=== PATIENT | female | born 1990 ===

== ENCOUNTER 2021-10-07 17:51 | Observation (INO) ==
[2021-10-07 19:54] LABS: Eosinophils % 0.6 %
[2021-10-07 19:56] LABS: Basophils # 0.1 K/mcL (0.0-0.2); Basophils % 0.5 %; Eosinophils # 0.1 K/mcL (0.0-0.6); Hematocrit 42.6 % (35.3-44.9); Hemoglobin 14.1 g/dL (11.5-15.4); Immature Granulocytes % 0.5 % (0-4); Immature Platelets 7.1 % (1.1-6.1); Lymphocytes # 1.5 K/mcL (0.6-4.6); Lymphocytes % 14.6 %; Mean Corpuscular HGB Conc 33.1 g/dL (31.6-35.5); Mean Corpuscular Hemoglobin 27.2 pg (28.0-33.3); Mean Corpuscular Volume 82.2 fL (83.0-100.0); Mean Platelet Volume 10.4 fL (9.4-12.4); Monocytes # 0.7 K/mcL (0.0-1.3); Monocytes % 6.2 %; Platelet Count 240 K/mcL (140-400); Red Blood Count 5.18 M/mcL (3.82-4.97); Red Cell Distribution Width 13.3 % (11.5-14.5); Segmented Neutrophils % 77.6 %; White Blood Count 10.5 K/mcL (4.3-11.1)
[2021-10-07 20:12] LABS: BUN/Creatinine Ratio 15 (6-26); Blood Urea Nitrogen 10 mg/dL (6-20); Calcium 9.2 mg/dL (8.6-10.3); Carbon Dioxide 24 mEq/L (23-29); Chloride 101 mEq/L (98-107); Glucose 144 mg/dL (70-105); Osmolality,Calculated 280 (280-300); Potassium 3.8 mEq/L (3.5-5.1); Sodium 134 mEq/L (136-145); Troponin I < 0.03 ng/mL (< 0.04); eGFR For African Americans > 60 (> 60); eGFR For Non-African Americans > 60 (> 60)
[2021-10-07] MEDS ORDERED: 0.9 % Sodium Chloride 1,000 ML IVC ONE (20:38)
[2021-10-07 20:51] LABS: Neutrophils # 8.2 K/mcL (1.6-8.9)
[2021-10-07 21:31] LABS: INR 1.1; Prothrombin Time 11.8 Seconds (9.4-12.1)
[2021-10-07 21:33] LABS: Activated Partial Thrombo Time 23.1 Seconds (26.0-36.0)
[2021-10-07] MEDS ORDERED: Isovue-370 500 ML BOTTLE IVP ONE (21:39)
[2021-10-08] MEDS ORDERED: Perflutren Lipid Microsphere 1.3 ML in 0.9 % Sodium Chloride 8.7 ML IVP PRN ×2 (02:13→10:41)
[2021-10-08] MEDS ORDERED: Naloxone 0.4 MG/ML INJ IVP PRN (02:18)
[2021-10-08] MEDS ORDERED: Ondansetron 4 MG/2 ML VIAL IVP PRN (02:18)
[2021-10-08] MEDS ORDERED: Nitroglycerin 0.4 MG TAB.SUBL SL PRN (03:24)
[2021-10-08] MEDS ORDERED: Morphine Sulfate 2 MG/ML SYRINGE IVP PRN (04:00)
[2021-10-08 05:34] LABS: Bilirubin,Urine Negative (Negative); Blood,Urine Trace (Negative); Clarity,Urine Clear (Clear); Color,Urine Light-Yellow (Yellow); Glucose,Urine (UA) Normal (Normal); Ketones,Urine Negative (Negative); Leukocyte Esterase,Urine Negative (Negative); Nitrite,Urine Negative (Negative); Protein,Urine Trace mg/dL (Neg-Trace); RBC,Urine 0-3 per hpf (0-3); Specific Gravity,Urine > 1.030 (1.010-1.025); Squamous Epithelial Cell,Urine Moderate per hpf (None-Few); Urobilinogen,Urine Normal (Normal); WBC,Urine 15-30 per hpf (0-3)
[2021-10-08 07:37] LABS: BUN/Creatinine Ratio 28 (6-26); Blood Urea Nitrogen 11 mg/dL (6-20); Calcium 8.7 mg/dL (8.6-10.3); Carbon Dioxide 23 mEq/L (23-29); Chloride 105 mEq/L (98-107); Chol/HDL Ratio 2.7 (0-4.9); Cholesterol 176 mg/dL (< 200); Glucose 79 mg/dL (70-105); HDL Cholesterol 65 mg/dL (40-59); LDL Cholesterol,Calculated 98 mg/dL (< 100); Magnesium 1.8 mg/dL (1.6-2.6); Osmolality,Calculated 280 (280-300); Potassium 3.7 mEq/L (3.5-5.1); Sodium 136 mEq/L (136-145); Triglycerides 64 mg/dL (< 150); eGFR For African Americans > 60 (> 60); eGFR For Non-African Americans > 60 (> 60)
[2021-10-08 07:47] LABS: Troponin I < 0.03 ng/mL (< 0.04)
[2021-10-08 07:49] LABS: Thyroid Stimulating Hormone 1.445 mcIU/mL (0.340-5.600)
[2021-10-08] MEDS: lisinopriL 20 MG TABLET PO SCH (08:23)
[2021-10-08] MEDS: Aspirin Enteric Coated 81 MG Tablet PO SCH (08:24)
[2021-10-08 14:24] LABS: Hematocrit 37.7 % (35.3-44.9); Hemoglobin 12.8 g/dL (11.5-15.4); Mean Corpuscular Hemoglobin 27.7 pg (28.0-33.3); Mean Corpuscular Volume 81.6 fL (83.0-100.0); Mean Platelet Volume 10.5 fL (9.4-12.4); Platelet Count 229 K/mcL (140-400); Red Blood Count 4.62 M/mcL (3.82-4.97); Red Cell Distribution Width 13.5 % (11.5-14.5); White Blood Count 9.1 K/mcL (4.3-11.1)
[2021-10-08] MEDS: Acetaminophen 325 MG TABLET PO PRN (15:16)
[2021-10-08 16:32] LABS: Estimated Average Glucose 105 mg/dl; Hemoglobin A1C 5.3 %
[2021-10-09 04:04] LABS: Hemoglobin 12.4 g/dL (11.5-15.4); Mean Corpuscular HGB Conc 32.6 g/dL (31.6-35.5); Mean Corpuscular Hemoglobin 27.2 pg (28.0-33.3); Mean Corpuscular Volume 83.3 fL (83.0-100.0); Mean Platelet Volume 10.3 fL (9.4-12.4); Platelet Count 271 K/mcL (140-400); Red Blood Count 4.56 M/mcL (3.82-4.97); Red Cell Distribution Width 13.4 % (11.5-14.5); White Blood Count 7.8 K/mcL (4.3-11.1)
[2021-10-09 04:20] LABS: BUN/Creatinine Ratio 30 (6-26); Blood Urea Nitrogen 13 mg/dL (6-20); Calcium 8.2 mg/dL (8.6-10.3); Carbon Dioxide 25 mEq/L (23-29); Chloride 103 mEq/L (98-107); Glucose 82 mg/dL (70-105); Osmolality,Calculated 279 (280-300); Potassium 3.5 mEq/L (3.5-5.1); Sodium 135 mEq/L (136-145); eGFR For African Americans > 60 (> 60); eGFR For Non-African Americans > 60 (> 60)
[2021-10-09] MEDS: Aspirin Enteric Coated 81 MG Tablet PO SCH (09:08)
[2021-10-09] MEDS: lisinopriL 20 MG TABLET PO SCH (09:08)
[2021-10-09] MEDS: Metoprolol 100 MG TABLET PO SCH (20:03)
[2021-10-09] MEDS: Acetaminophen 325 MG TABLET PO PRN (23:05)
[2021-10-10] MEDS: Aspirin Enteric Coated 81 MG Tablet PO SCH (08:09)
[2021-10-10] MEDS: lisinopriL 20 MG TABLET PO SCH (08:09)
[2021-10-10] MEDS: Metoprolol 100 MG TABLET PO SCH ×2 (08:09→19:29)
[2021-10-10] MEDS ORDERED: NON-FORMULARY MEDICATION 1 EACH EACH (Lisinopril [Lisinopril] 40 MG Tablet) PO SCH (09:00)
[2021-10-10] MEDS ORDERED: Lidocaine Viscous Oral Soln 15 ML SOLUTION MM PRN (10:36)
[2021-10-10] MEDS ORDERED: 0.9 % Sodium Chloride 500 ML IVC ONE (10:37)
[2021-10-10] MEDS: Acetaminophen 325 MG TABLET PO PRN (19:29)
[2021-10-11 06:56] VITALS: BP 137/78; PULSE 85; TEMP 97.7; O2SAT 95
[2021-10-11] MEDS: lisinopriL 20 MG TABLET PO SCH (08:11)
[2021-10-11] MEDS: Aspirin Enteric Coated 81 MG Tablet PO SCH (08:11)
[2021-10-11] MEDS: Metoprolol 100 MG TABLET PO SCH (08:11)
[2021-10-11] MEDS ORDERED: *HR* Propofol 200 MG/20 ML VIAL IVP ONE (11:15)
[2021-10-11] MEDS ORDERED: Lidocaine -MPF 2% 5 ML VIAL SQ ONE (11:15)
== END 2021-10-11 11:16 | disposition home or self-care (01) ==
LOC: 3BNU 17:51 → EMEROOARM 17:51 → SUATTDRO 10-08 01:17 → 3BNU 10-08 02:19
PROVIDERS: ADMIT Student in an Organized Health Care Education/Training Program; ATTEND Registered Nurse